=== PATIENT | female | born 1975 | race Caucasian/White ===

== ENCOUNTER 2021-05-10 05:17 | Observation (INO) | payer BC ==
[~2021-05-10] VITALS: Ht 170.2 cm; Wt 114.0 kg
--- NOTE | 2021-05-10 08:50 | RAD ---
XR CHEST 1V INDICATION: CODE STROKE COMPARISON STUDY: None. FINDINGS: Lungs: Normal lung volume. No pulmonary mass or consolidation. The tracheobronchial tree and hilar st ructures are normal. Pleura: No pleural effusion or pneumothorax. Heart and Mediastinum: The cardiomediastinal silhouette is normal. The great vessels of the thorax ar e normal. Bones and Soft Tissues: The bones and soft tissues are within normal limits. IMPRESSION: No acute cardiopulmonary process. Electronically signed by: Erick Lopez MD (05/10/2021 8:48 AM) [id number]
--- NOTE | 2021-05-10 08:56 | RAD ---
CT STROKE HEAD W/O History: Reason: LEFT SIDED WEAKNESS / Spl. Instructions: / History: Comparison: None. Technique: Noncontrast CT imaging was performed of the head. Images made available for review at 8:45 AM on 05/10/2021. Exposure: One or more of the following individualized dose reduction techniques were utilized for thi s examination: 1. Automated exposure control 2. Adjustment of the mA and/or kV according to patient size 3. Use of iterative reconstruction technique. Findings: No intracranial hemorrhage. No mass effect. No hydrocephalus. Extra-axial spaces are unremarkable. Imaged orbits are unremarkable. Imaged paranasal sinuses and mastoid air cells are clear. No acute ca lvarial fracture. Impression: 1. No acute intracranial abnormality. FOR INTERNAL CODING PURPOSES Critical result: Findings discussed with ER physician at 05/10/2021 8:50 AM. RESULT CODE: (C) Electronically signed by: Maged Paulino DO (05/10/2021 8:53 AM) [id number]
[2021-05-10 10:00] VITALS: BP 160/90
[2021-05-10 10:10] LABS: PROTHROMBIN TIME PATIENT 12.1 SEC (11.7-14.0)
[2021-05-10 10:11] LABS: BASO # 0.1 x10^3/uL (0.0-0.2); BASO % 1 % (0-3); EOS # 0.2 x10^3/uL (0.0-0.7); EOS % 2 % (0-3); HEMATOCRIT 36.7 % (36.0-47.0); HEMOGLOBIN 12.1 g/dL (12.0-15.5); LYMPH # 2.4 x10^3/uL (1.0-4.8); LYMPH % 37 % (24-48); MEAN CORPUSCULAR HEMOGLOBIN 27 pg (25-35); MEAN CORPUSCULAR HGB CONC 33 g/dL (31-37); MEAN CORPUSCULAR VOLUME 82 fL (79-100); MONO # 0.7 x10^3/uL (0.0-1.1); MONO % 11 % (0-9); NEUT # 3.2 x10^3/uL (1.8-7.7); NEUT % 49 % (31-73); PLATELET COUNT 272 x10^3/uL (140-400); RED BLOOD COUNT 4.46 x10^6/uL (3.50-5.40); RED CELL DISTRIBUTION WIDTH 16.6 % (11.5-14.5); WHITE BLOOD COUNT 6.6 x10^3/uL (4.0-11.0)
[2021-05-10] MEDS ORDERED: ONDANSETRON PF 4 MG/2 ML VIAL. IVP PRN (10:15)
[2021-05-10] MEDS ORDERED: ACETAMINOPHEN 325 MG TABLET. PO PRN (10:15)
[2021-05-10] MEDS ORDERED: hydrALAZINE 20 MG/ML VIAL. IVP PRN (10:15)
[2021-05-10 10:16] LABS: PREG TEST PT QUAL NEGATIVE (NEG)
[2021-05-10 10:23] LABS: ALBUMIN 3.1 g/dL (3.4-5.0); ALBUMIN/GLOBULIN RATIO 0.7 (1.0-1.7); CALCIUM 8.1 mg/dL (8.5-10.1); CREATININE 0.8 mg/dL (0.6-1.0); GFR 77.9; TOTAL BILIRUBIN 0.4 mg/dL (0.2-1.0); TOTAL PROTEIN 7.4 g/dL (6.4-8.2)
--- NOTE | 2021-05-10 10:25 | PHYS DOC ---
Adult General Chief Complaint Chief Complaint: HEADACHE HPI HPI Patient is a 45 year old female who presented to ER as stroke activation This note written for completion purposes in EMR. Patient not seen by Dr. Lang Allergies Allergies Allergies Coded Allergies Type Severity Reaction Last Updated Verified No Known Drug Allergies 10/28/13 No Current Patient Data Lab Values Laboratory Tests Test 05/10/21 05:00 05/10/21 05:30 Serum Test, Qualitative Negative (NEG) White Blood Count 6.6 x10^3/uL (4.0-11.0) Red Blood Count 4.46 x10^6/uL (3.50-5.40) Hemoglobin 12.1 g/dL (12.0-15.5) Hematocrit 36.7 % (36.0-47.0) Mean Corpuscular Volume 82 fL (79-100) Mean Corpuscular Hemoglobin 27 pg (25-35) Mean Corpuscular Hemoglobin Concent 33 g/dL (31-37) Red Cell Distribution Width 16.6 % (11.5-14.5) H Platelet Count 272 x10^3/uL (140-400) Neutrophils (%) (Auto) 49 % (31-73) Lymphocytes (%) (Auto) 37 % (24-48) Monocytes (%) (Auto) 11 % (0-9) H Eosinophils (%) (Auto) 2 % (0-3) Basophils (%) (Auto) 1 % (0-3) Neutrophils # (Auto) 3.2 x10^3/uL (1.8-7.7) Lymphocytes # (Auto) 2.4 x10^3/uL (1.0-4.8) Monocytes # (Auto) 0.7 x10^3/uL (0.0-1.1) Eosinophils # (Auto) 0.2 x10^3/uL (0.0-0.7) Basophils # (Auto) 0.1 x10^3/uL (0.0-0.2) Prothrombin Time 12.1 SEC (11.7-14.0) Prothrombin Time INR 0.9 (0.8-1.1) Sodium Level 140 mmol/L (136-145) Potassium Level 3.9 mmol/L (3.5-5.1) Chloride Level 102 mmol/L (98-107) Carbon Dioxide Level 29 mmol/L (21-32) Anion Gap 9 (6-14) Blood Urea Nitrogen 7 mg/dL (7-20) Creatinine 0.8 mg/dL (0.6-1.0) Estimated GFR (Cockcroft-Gault) 77.9 BUN/Creatinine Ratio 9 (6-20) Glucose Level 113 mg/dL (70-99) H Calcium Level 8.1 mg/dL (8.5-10.1) L Total Bilirubin 0.4 mg/dL (0.2-1.0) Aspartate Amino Transferase (AST) 62 U/L (15-37) H Alanine Aminotransferase (ALT) 64 U/L (14-59) H Alkaline Phosphatase 137 U/L (46-116) H Total Protein 7.4 g/dL (6.4-8.2) Albumin 3.1 g/dL (3.4-5.0) L Albumin/Globulin Ratio 0.7 (1.0-1.7) L Laboratory Tests 05/10/21 05:30 Laboratory Tests 05/10/21 05:30 EKG EKG [] Radiology/Procedures Radiology/Procedures [] Course & Med Decision Making Course & Med Decision Making Pertinent Labs and Imaging studies reviewed. (See chart for details) NOTE ENTERED IN ERROR. PATIENT NOT SEEN BY DR RUSS Ellis Disclaimer Rhonda Disclaimer This electronic medical record was generated, in whole or in part, using a voice recognition dictation system. Departure Departure Referrals: ESTELLA ANTONY MD (PCP) JOSELINE LANG DO May 10, 2021 10:25
[2021-05-10 10:26] LABS: POTASSIUM 3.9 mmol/L (3.5-5.1)
--- NOTE | 2021-05-10 11:12 | PDOC1 ---
History and Physical Date of Admission Date of Admission DATE: 05/10/21 TIME: 10:19 Identification/Chief Complaint Chief Complaint Left arm numbness and weakness Source Source: Patient History of Present Illness History of Present Illness Ms Wilder is a 45-year-old right-handed female with past medical history of right ocular migraines and morbid obesity status post gastric sleeve in 2019 who presents to the ED in the morning on 05/10/2021 around 0600 complaining that she woke at 0300 to feed her [id number] and noted left forearm and hand numbness and weakness unable to use her hand. This persisted for over an hour and at 0400 she took an 81 mg aspirin. At that time she also had a headache which minimally improved with the aspirin she took her blood pressure at home which was 189/130. After laying down she took a repeat blood pressure which was 169/106. As her hand weakness and numbness persisted she came to the ED for further care. She had no visual complaints no weakness in any of her limbs no difficulty with gait. Does have family history of a CVA in her mother at age 62 and CAD in her mother. She does not smoke or use smokeless tobacco and does drink more than 14 alcoholic drinks a week. She does not use illicit drugs. For her migraine she occasionally takes NSAIDs and has less than 3/month. She has not seen a primary care physician in over 2 years and has seen a neurologist for longer than that. Review of systems she notes that she has recently had urinary frequency and had foul-smelling urine. She also notes that she is fully vaccinated against COVID- 19 with Pfizer vaccine and delayed getting her booster as she had COVID-19 16 days ago and has fully recovered her symptoms included a mild cough and rhinitis. Labs WBC 6.6, Hb 12.1, platelets 272, INR 0.9, urine negative, high- sensitivity troponin 6, NA 140, K3.9, BUN 7, CR 0.8, glucose 113, calcium 8.1, bilirubin 0.4, AST 62, ALT 64, alkaline phosphatase 137, albumin 3.1, ethyl alcohol level less than 10. Chest radiograph no acute abnormalities Noncontrast CT head with no acute intracranial abnormalities Admitted for further care Past Medical History CENTRAL NERVOUS SYSTEM: Migraine Past Surgical History Past Surgical History Gastric sleeve 2019 at [facility] Past Surgical History: Tubal Ligation (and 2014 reversal) Family History Family History: Cancer (Bladder and father), Coronary Artery Disease (Mother age 50), Diabetes (Mother), Heart Disease, High Cholestrol, Hypertension, Kidney Disease (ESRD in mother), Obesity Social History Smoke: No ALCOHOL: heavy Drugs: None Current Medications Current Medications Current Medications Acetaminophen (Tylenol) 650 mg PRN Q6HRS PRN PO MILD PAIN / TEMP > 100.3'F; Start 05/10/21 at 10:15 Ondansetron HCl (Zofran) 4 mg PRN Q4HRS PRN IVP NAUSEA/VOMITING; Start 05/10/21 at 10:15 Hydralazine HCl (Apresoline Inj) 10 mg PRN Q4HRS PRN IVP ELEVATED BP, SEE COMMENTS; Start 05/10/21 at 10:15 Allergies Allergies: Coded Allergies: No Known Drug Allergies (Unverified , 10/28/13) ROS General: YES: Fatigue, Malaise; No: Chills, Night Sweats, Appetite, Other PSYCHOLOGICAL ROS: YES: Anxiety; No: Behavioral Disorder, Concentration difficultie, Decreased libido, Depression, Disorientation, Hallucinations, Hostility, Irritablity, Memory difficulties, Mood Swings, Obsessive thoughts, Physical abuse, Sexual abuse, S leep disturbances, Suicidal ideation, Other Eyes: No Blurry vision, No Decreased vision, No Double vision, No Dry eyes, No Excessive tearing, No Eye Pain, No Itchy Eyes, No Loss of vision, No Photophobia, No Scotomata, No Uses contacts, No Uses glasses, No Other HEENT: YES: Heacaches; No: Visual Changes, Hearing change, Nasal congestion, Nasal discharge, Oral lesions, Sinus pain, Sore Throat, Epistaxis, Sneezing, Snoring, Tinnitus, Vertigo, Vocal changes, Other ALLERGY AND IMMUNOLOGY: No: Hives, Insect Bite Sensitivity, Itchy/Watery Eyes, Nasal Congestion, Post Nasal Drip, Seasonal Allergies, Other Hematological and Lymphatic: No: Bleeding Problems, Blood Clots, Blood Transfusions, Brusing, Night Sweats, Pallor, Swollen Lymph Nodes, Other ENDOCRINE: No: Breast Changes, Galactorrhea, Hair Pattern Changes, Hot Flashes, Malaise/lethargy, Mood Swings, Palpitations, Polydipsia/polyuria, Skin Changes, Temperature Intolerance, Unexpected Weight Changes, Other Breast: No New/Changing Breast Lumps, No Nipple changes, No Nipple discharge, No Other Respiratory: No: Cough, Hemoptysis, Orthopnea, Pleuritic Pain, Shortness of breath, SOB with excertion, Sputum Changes, Stridor, Tachypnea, Wheezing, Other Cardiovascular: No Chest Pain, No Palpitations, No Orthopnea, No Paroxysmal Noc. Dyspnea, No Edema, No Lt Headedness, No Other Gastrointestinal: No Nausea, No Vomiting, No Abdominal Pain, No Diarrhea, No Constipation, No Melena, No Hematochezia, No Other Genitourinary: YES Frequency; No Dysuria, No Incontinence, No Hematuria, No Retention, No Discharge, No Urgency, No Pain, No Flank Pain, No Other, No , No , No , No , No , No , No Musculoskeletal: Yes Muscular Weakness; No Gait Disturbance, No Joint Pain, No Joint Stiffness, No Joint Swelling, No Muscle Pain, No Pain In:, No Swelling In:, No Other Neurological: Yes Numbness/Tingling; No Behavorial Changes, No Bowel/Bladder ControlChng, No Confusion, No Dizziness, No Gait Disturbance, No Headaches, No Impaired Coord/balance, No Memory Loss, No Seizures, No Speech Problems, No Tremors, No Visual Changes, No Weakness, No Other Skin: No Dry Skin, No Eczema, No Hair Changes, No Lumps, No Mole Changes, No Mottling, No Nail Changes, No Pruritus, No Rash, No Skin Lesion Changes, No Other, No Acne Labs Labs Laboratory Tests Test 05/10/21 05:00 05/10/21 05:30 Serum Test, Qualitative Negative (NEG) White Blood Count 6.6 x10^3/uL (4.0-11.0) Red Blood Count 4.46 x10^6/uL (3.50-5.40) Hemoglobin 12.1 g/dL (12.0-15.5) Hematocrit 36.7 % (36.0-47.0) Mean Corpuscular Volume 82 fL (79-100) Mean Corpuscular Hemoglobin 27 pg (25-35) Mean Corpuscular Hemoglobin Concent 33 g/dL (31-37) Red Cell Distribution Width 16.6 % (11.5-14.5) Platelet Count 272 x10^3/uL (140-400) Neutrophils (%) (Auto) 49 % (31-73) Lymphocytes (%) (Auto) 37 % (24-48) Monocytes (%) (Auto) 11 % (0-9) Eosinophils (%) (Auto) 2 % (0-3) Basophils (%) (Auto) 1 % (0-3) Neutrophils # (Auto) 3.2 x10^3/uL (1.8-7.7) Lymphocytes # (Auto) 2.4 x10^3/uL (1.0-4.8) Monocytes # (Auto) 0.7 x10^3/uL (0.0-1.1) Eosinophils # (Auto) 0.2 x10^3/uL (0.0-0.7) Basophils # (Auto) 0.1 x10^3/uL (0.0-0.2) Prothrombin Time 12.1 SEC (11.7-14.0) Prothromb Time International Ratio 0.9 (0.8-1.1) Laboratory Tests Test 05/10/21 05:00 05/10/21 05:30 Serum Test, Qualitative Negative (NEG) White Blood Count 6.6 x10^3/uL (4.0-11.0) Red Blood Count 4.46 x10^6/uL (3.50-5.40) Hemoglobin 12.1 g/dL (12.0-15.5) Hematocrit 36.7 % (36.0-47.0) Mean Corpuscular Volume 82 fL (79-100) Mean Corpuscular Hemoglobin 27 pg (25-35) Mean Corpuscular Hemoglobin Concent 33 g/dL (31-37) Red Cell Distribution Width 16.6 % (11.5-14.5) Platelet Count 272 x10^3/uL (140-400) Neutrophils (%) (Auto) 49 % (31-73) Lymphocytes (%) (Auto) 37 % (24-48) Monocytes (%) (Auto) 11 % (0-9) Eosinophils (%) (Auto) 2 % (0-3) Basophils (%) (Auto) 1 % (0-3) Neutrophils # (Auto) 3.2 x10^3/uL (1.8-7.7) Lymphocytes # (Auto) 2.4 x10^3/uL (1.0-4.8) Monocytes # (Auto) 0.7 x10^3/uL (0.0-1.1) Eosinophils # (Auto) 0.2 x10^3/uL (0.0-0.7) Basophils # (Auto) 0.1 x10^3/uL (0.0-0.2) Prothrombin Time 12.1 SEC (11.7-14.0) Prothromb Time International Ratio 0.9 (0.8-1.1) Images Images CT head w/o contrast: No intracranial hemorrhage. No mass effect. No hydrocephalus. Extra-axial spaces are unremarkable. Imaged orbits are unremarkable. Imaged paranasal sinuses and mastoid air cells are clear. No acute calvarial fracture. Impression: 1. No acute intracranial abnormality. VTE Prophylaxis Ordered VTE Prophylaxis Devices: No VTE Pharmacological Prophylaxi: No Assessment/Plan Assessment/Plan A/P: Left arm weakness -given resolution of symptoms and normal peripheral pulses this is likely a nerve impingement ulnar possible median nerve, sounds similar to the "Thursday night palsy". Based on her alcohol intake history and sleep deprivation with a young child it is also possible. No history of cervical spinal problems. She has never had these symptoms before. Already taken aspirin. Symptoms have resolved. CT head no concerning findings. I have notified neurology code stroke was called overnight for labor. Given she awoke with the symptoms her last known normal was 2200 on 05/09/2021. Ocular migraines -usually right-sided less than 3 a month. No indication for prophylaxis Morbid obesity -status post gastric sleeve in 2019 she is happy with her weight loss thus far. Transaminitis -possibly due to nonalcoholic fatty liver disease in combination with some alcoholic liver disease versus recovering transaminases from recent COVID infection. Should have outpatient follow-up for this to ensure they resolved. No history of hepatitis exposure. No abdominal complaints. Hyperglycemia -with family history we will check A1c to rule out diabetes and check TSH. Heavy alcohol use -counseled on cutting back. She does not wish for additional resources at this time and will cut back on her own. FEN - regular diet PPX - SCDs FULL CODE Dispo - observation Justifications for Admission Other Justification MARTIN ORTIZ MD May 10, 2021 11:12
[2021-05-10 11:24] LABS: BILIRUBIN,URINE NEGATIVE (NEG); CLARITY,URINE CLEAR; COLOR,URINE YELLOW; NITRITE,URINE NEGATIVE (NEG); PH,URINE 7.5 (<5.0-8.0); PROTEIN,URINE NEGATIVE (NEG-TRACE)
[2021-05-10 11:49] LABS: BACTERIA,URINE 0 /HPF (0-FEW); RBC,URINE 0 /HPF (0-2); WBC,URINE 0 /HPF (0-4)
--- NOTE | 2021-05-10 12:07 | PDOC2 ---
NEUROLOGY CONSULT Date of Service DOS: DATE: 05/10/21 TIME: 12:01 Reason for Consult Reason for Consult: Stroke symptoms Referring Physician Referring Physician: Dr. Elizabeth Source Source: Caregiver (, brother), Chart review, Patient History of Present Illness History of Present Illness The patient is a 45-year-old right-handed female who yesterday at 1500 noticed the onset of left arm numbness. She gets migraine headaches about every 2 months usually with right arm symptoms and ocular symptoms. She does not take anything for them. She started having migraines in her teens and did try rizatriptan once which caused some jaw pain and made her feel funny. She went ahead and took an aspirin, waited for the symptoms to go away, but they were still present after an hour so she came to the emergency department. She did notice that her blood pressure was high. She feels fine now except that her left arm still feels a little bit funny. There is no history of stroke, seizure, or head injury. 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, occasional alcohol, no tobacco or street drugs, 4 children Current Medications Current Medications Current Medications Acetaminophen (Tylenol) 650 mg PRN Q6HRS PRN PO MILD PAIN / TEMP > 100.3'F; Start 05/10/21 at 10:15 Ondansetron HCl (Zofran) 4 mg PRN Q4HRS PRN IVP NAUSEA/VOMITING; Start 05/10/21 at 10:15 Hydralazine HCl (Apresoline Inj) 10 mg PRN Q4HRS PRN IVP ELEVATED BP, SEE COMMENTS; Start 05/10/21 at 10:15 Active Scripts Active Reported No Known Medications Prior To Admisstion (Info) Each 1 Each MC 1X Allergies Allergies: Coded Allergies: No Known Drug Allergies (Unverified , 10/28/13) ROS Review of System Negative for fever, chills, weight loss, shortness of breath, chest pain, indigestion, hematochezia, melena, and dysuria. Full 14-point review of systems is negative. Physical Exam Physical Examination General: Well-developed, well-nourished, white female, in no acute distress HEENT: Normocephalic andatraumatic. Temporal arteriespulsatile and nontender.Fundoscopic exam unremarkable Neck: Supple without bruit, no meningismus Musculoskeletal: Stability:see neurologic. Gait exam:see neurologic. Tone:see neurologic.Strength:see neurologic. Neurological: Mental Status:intact, orientation, memory, attention span/concentration, language, fund of knowledge normal. Cranial Nerves:Pupils equal and reactive to light, extraocular movements areintact, visual maxwell are full to confrontation. Facial sensation is normal. There is no facial asymmetry. Vestibulo-ocular reflex is intact. Palate elevates and tongue protrudes in midline. All other cranial related problems are negative except as mentioned before.Reflexes:2+ and symmetric with flexor plantar responses. Motor:5/5 strength with normal tone and bulk. Coordination:Finger-nose finger and [id number] testing are normal. Rapid alternating movements and fine finger movements are intact. Gait:Normal, including tandem. Sensory:Normal pinprick, vibration, light touch, proprioception. Vitals VITALS Vital Signs Date Time Temp Pulse Resp B/P (MAP) Pulse Ox O2 Delivery O2 Flow Rate FiO2 05/10/21 10:00 97.7 88 18 160/90 (113) 98 Room Air 97.7 Labs Labs Laboratory Tests Test 05/10/21 05:00 05/10/21 05:30 05/10/21 11:05 Serum Test, Qualitative Negative (NEG) White Blood Count 6.6 x10^3/uL (4.0-11.0) Red Blood Count 4.46 x10^6/uL (3.50-5.40) Hemoglobin 12.1 g/dL (12.0-15.5) Hematocrit 36.7 % (36.0-47.0) Mean Corpuscular Volume 82 fL (79-100) Mean Corpuscular Hemoglobin 27 pg (25-35) Mean Corpuscular Hemoglobin Concent 33 g/dL (31-37) Red Cell Distribution Width 16.6 % (11.5-14.5) Platelet Count 272 x10^3/uL (140-400) Neutrophils (%) (Auto) 49 % (31-73) Lymphocytes (%) (Auto) 37 % (24-48) Monocytes (%) (Auto) 11 % (0-9) Eosinophils (%) (Auto) 2 % (0-3) Basophils (%) (Auto) 1 % (0-3) Neutrophils # (Auto) 3.2 x10^3/uL (1.8-7.7) Lymphocytes # (Auto) 2.4 x10^3/uL (1.0-4.8) Monocytes # (Auto) 0.7 x10^3/uL (0.0-1.1) Eosinophils # (Auto) 0.2 x10^3/uL (0.0-0.7) Basophils # (Auto) 0.1 x10^3/uL (0.0-0.2) Prothrombin Time 12.1 SEC (11.7-14.0) Prothromb Time International Ratio 0.9 (0.8-1.1) Sodium Level 140 mmol/L (136-145) Potassium Level 3.9 mmol/L (3.5-5.1) Chloride Level 102 mmol/L (98-107) Carbon Dioxide Level 29 mmol/L (21-32) Anion Gap 9 (6-14) Blood Urea Nitrogen 7 mg/dL (7-20) Creatinine 0.8 mg/dL (0.6-1.0) Estimated GFR (Cockcroft-Gault) 77.9 BUN/Creatinine Ratio 9 (6-20) Glucose Level 113 mg/dL (70-99) Calcium Level 8.1 mg/dL (8.5-10.1) Total Bilirubin 0.4 mg/dL (0.2-1.0) Aspartate Amino Transf (AST/SGOT) 62 U/L (15-37) Alanine Aminotransferase (ALT/SGPT) 64 U/L (14-59) Alkaline Phosphatase 137 U/L (46-116) Troponin I High Sensitivity 6 ng/L (4-50) Total Protein 7.4 g/dL (6.4-8.2) Albumin 3.1 g/dL (3.4-5.0) Albumin/Globulin Ratio 0.7 (1.0-1.7) Ethyl Alcohol Level < 10 mg/dL (0-10) Urine Color Yellow Urine Clarity Clear Urine pH 7.5 (<5.0-8.0) Urine Specific Rogers 1.020 (1.000-1.030) Urine Protein Negative mg/dL (NEG-TRACE) Urine Glucose (UA) Negative mg/dL (NEG) Urine Ketones (Stick) Negative mg/dL (NEG) Urine Blood Negative (NEG) Urine Nitrite Negative (NEG) Urine Bilirubin Negative (NEG) Urine Urobilinogen Dipstick 1.0 mg/dL (0.2 mg/dL) Urine Leukocyte Esterase Negative (NEG) Urine RBC 0 /HPF (0-2) Urine WBC 0 /HPF (0-4) Urine Squamous Epithelial Cells Few /LPF Urine Bacteria 0 /HPF (0-FEW) Laboratory Tests Test 05/10/21 05:00 05/10/21 05:30 05/10/21 11:05 Serum Test, Qualitative Negative (NEG) White Blood Count 6.6 x10^3/uL (4.0-11.0) Red Blood Count 4.46 x10^6/uL (3.50-5.40) Hemoglobin 12.1 g/dL (12.0-15.5) Hematocrit 36.7 % (36.0-47.0) Mean Corpuscular Volume 82 fL (79-100) Mean Corpuscular Hemoglobin 27 pg (25-35) Mean Corpuscular Hemoglobin Concent 33 g/dL (31-37) Red Cell Distribution Width 16.6 % (11.5-14.5) Platelet Count 272 x10^3/uL (140-400) Neutrophils (%) (Auto) 49 % (31-73) Lymphocytes (%) (Auto) 37 % (24-48) Monocytes (%) (Auto) 11 % (0-9) Eosinophils (%) (Auto) 2 % (0-3) Basophils (%) (Auto) 1 % (0-3) Neutrophils # (Auto) 3.2 x10^3/uL (1.8-7.7) Lymphocytes # (Auto) 2.4 x10^3/uL (1.0-4.8) Monocytes # (Auto) 0.7 x10^3/uL (0.0-1.1) Eosinophils # (Auto) 0.2 x10^3/uL (0.0-0.7) Basophils # (Auto) 0.1 x10^3/uL (0.0-0.2) Prothrombin Time 12.1 SEC (11.7-14.0) Prothromb Time International Ratio 0.9 (0.8-1.1) Sodium Level 140 mmol/L (136-145) Potassium Level 3.9 mmol/L (3.5-5.1) Chloride Level 102 mmol/L (98-107) Carbon Dioxide Level 29 mmol/L (21-32) Anion Gap 9 (6-14) Blood Urea Nitrogen 7 mg/dL (7-20) Creatinine 0.8 mg/dL (0.6-1.0) Estimated GFR (Cockcroft-Gault) 77.9 BUN/Creatinine Ratio 9 (6-20) Glucose Level 113 mg/dL (70-99) Calcium Level 8.1 mg/dL (8.5-10.1) Total Bilirubin 0.4 mg/dL (0.2-1.0) Aspartate Amino Transf (AST/SGOT) 62 U/L (15-37) Alanine Aminotransferase (ALT/SGPT) 64 U/L (14-59) Alkaline Phosphatase 137 U/L (46-116) Troponin I High Sensitivity 6 ng/L (4-50) Total Protein 7.4 g/dL (6.4-8.2) Albumin 3.1 g/dL (3.4-5.0) Albumin/Globulin Ratio 0.7 (1.0-1.7) Ethyl Alcohol Level < 10 mg/dL (0-10) Urine Color Yellow Urine Clarity Clear Urine pH 7.5 (<5.0-8.0) Urine Specific Rogers 1.020 (1.000-1.030) Urine Protein Negative mg/dL (NEG-TRACE) Urine Glucose (UA) Negative mg/dL (NEG) Urine Ketones (Stick) Negative mg/dL (NEG) Urine Blood Negative (NEG) Urine Nitrite Negative (NEG) Urine Bilirubin Negative (NEG) Urine Urobilinogen Dipstick 1.0 mg/dL (0.2 mg/dL) Urine Leukocyte Esterase Negative (NEG) Urine RBC 0 /HPF (0-2) Urine WBC 0 /HPF (0-4) Urine Squamous Epithelial Cells Few /LPF Urine Bacteria 0 /HPF (0-FEW) Images Images CT STROKE HEAD W/O History: Reason: LEFT SIDED WEAKNESS / Spl. Instructions: / History: Comparison: None. Technique: Noncontrast CT imaging was performed of the head. Images made available for review at 8:45 AM on 05/10/2021. Exposure: One or more of the following individualized dose reduction techniques were utilized for this examination: 1. Automated exposure control 2. Adjustment of the mA and/or kV according to patient size 3. Use of iterative reconstruction technique. Findings: No intracranial hemorrhage. No mass effect. No hydrocephalus. Extra-axial spaces are unremarkable. Imaged orbits are unremarkable. Imaged paranasal sinuses and mastoid air cells are clear. No acute calvarial fracture. Impression: 1. No acute intracranial abnormality. Assessment/Plan Assessment/Plan Impression: Migraine associated neurological symptoms, doubt stroke or transient ischemic attack, blood pressure was high, though, which could have contributed. Recommendations: MRI of the brain, she has some claustrophobia, I have prescribed some Valium CT angiogram Echocardiogram Aspirin Sumatriptan as needed, risk discussed including cardiac. The reaction to rizatriptan sounds more like a serotonin effect rather than any type of anginal equivalent. She is not interested in a daily migraine prevention medication. If she changes her mind I would most likely use escitalopram. Further testing if MRI positive, otherwise okay for discharge Follow-up with me or my nurse practitioner in 6 weeks. Thank you for letting me help with the patient's care. LETICIA SANFORD MD May 10, 2021 12:07
--- NOTE | 2021-05-10 12:08 | NUR ---
SS following for discharge planning. SS reviewed pt chart and discussed with pt RN. Pt is from home with spouse and is currently on room air. PAT team referral made for assessment and recommendations for ETOH. SS will continue to follow for discharge planning. Addendum: 05/10/21 at 1334 by TONY BAPTISTE SS Marli Atkinson from [facility] team met with pt. Resources provided. Pt cleared by [facility] team. Pt's RN notified.
[2021-05-10] MEDS ORDERED: diazePAM 5 MG TABLET PO PRN (13:00)
[2021-05-10] MEDS ORDERED: ASPIRIN ENTERIC COATED 81 MG TABLET.DR. PO SCH (13:00)
--- NOTE | 2021-05-10 14:06 | CARD ---
MR#: [id number] Date of Study: 05/10/2021 Ordering Physician: LETICIA SANFORD, Referring Physician: LETICIA SANFORD, Tech: Karin Holley [facility] APPROVED REPORT EXAM: Two-dimensional and M-mode echocardiogram with Doppler and color Doppler. Other Information Quality : GoodHR: 78bpm Rhythm : NSR INDICATION CVA/TIA RISK FACTORS Hypertension Obesity 2D DIMENSIONS RVDd3.0 (2.9-3.5cm)Left Atrium(2D)3.5 (1.6-4.0cm) IVSd1.1 (0.7-1.1cm)Aortic Root(2D)2.9 (2.0-3.7cm) LVDd4.3 (3.9-5.9cm)LVOT Diameter2.3 (1.8-2.4cm) PWd1.1 (0.7-1.1cm)LVDs2.7 (2.5-4.0cm) FS (%) 35.8 %SV53.5 ml Aortic Valve AoV Peak Devon.160.2cm/sAoV VTI30.3cm AO Peak GR.10.3mmHgLVOT Peak Devon.94.3cm/s AO Mean GR.5mmHgAVA (VMAX)2.49cm2 Pulmonary Valve PV Peak Niiiiqct721.0cm/s LEFT VENTRICLE The left ventricle is normal size. There is mild concentric left ventricular hypertrophy. The left ve ntricular systolic function is normal and the ejection fraction is within normal range. LV ejection f raction is 60 to 65%. There is normal LV segmental wall motion. The left ventricular diastolic functi on and filling is normal for age. RIGHT VENTRICLE The right ventricle is normal size. There is normal right ventricular wall thickness. The right ventr icular systolic function is normal. ATRIA The left atrium size is normal. The right atrium size is normal. The interatrial septum is intact wit h no evidence for an atrial septal defect or patent foramen ovale as noted on 2-D or Doppler imaging. Normal bubble study. AORTIC VALVE The aortic valve is normal in structure and function. Doppler and Color Flow revealed trace to mild a ortic regurgitation. There is no significant aortic valvular stenosis. MITRAL VALVE The mitral valve is normal in structure and function. There is no evidence of mitral valve prolapse. There is no mitral valve stenosis. Doppler and Color-flow revealed trace mitral regurgitation. TRICUSPID VALVE The tricuspid valve is normal in structure and function. Doppler and Color Flow revealed no tricuspid valve regurgitation noted. There is no tricuspid valve stenosis. PULMONIC VALVE The pulmonary valve is normal in structure and function. Doppler and Color Flow revealed trace pulmon ic valvular regurgitation. GREAT VESSELS The aortic root is normal in size. The ascending aorta is normal in size. The IVC is normal in size a nd collapses >50% with inspiration. PERICARDIAL EFFUSION There is no evidence of significant pericardial effusion. Critical Notification Critical Value: No <Conclusion> The left ventricle is normal size. The left ventricular systolic function is normal and the ejection fraction is within normal range. LV ejection fraction is 60 to 65%. There is mild concentric left ventricular hypertrophy. The interatrial septum is intact with no evidence for an atrial septal defect or patent foramen ovale as noted on 2-D or Doppler imaging. Normal bubble study. Doppler and Color Flow revealed trace to mild aortic regurgitation. There is no significant aortic valvular stenosis. Doppler and Color-flow revealed trace mitral regurgitation. Doppler and Color Flow revealed no tricuspid valve regurgitation noted. Signed by : Adan Elliott MD Electronically Approved : 05/10/2021 14:05:36
[2021-05-10] MEDS ORDERED: IOHEXOL 350 MG/ML 100 ML VIAL. IV ONE (14:15)
[2021-05-10] MEDS ORDERED: CONTRAST GIVEN. MC PRN (14:15)
--- NOTE | 2021-05-10 15:09 | RAD ---
MRI BRAIN WO History:Reason: TIA, left numbness / Spl. Instructions: / History: Technique: Multiplanar, multi sequential MR imaging was performed of the brain without contrast. Comparison: Head CT May 10, 2021 Findings: No acute infarct. No intracranial hemorrhage. No mass effect. No hydrocephalus. Extra-axial spaces a re unremarkable. Imaged orbits are unremarkable. Imaged paranasal sinuses and mastoid air cells are clear. Impression: 1. No acute intracranial abnormality. Electronically signed by: Maged Paulino DO (05/10/2021 3:07 PM) [id number]
--- NOTE | 2021-05-10 16:02 | RAD ---
CTA HEAD AND NECK W/WO CONTRAST History:Reason: TIA, left numbness / Spl. Instructions: omni 350 75ml / History: Technique: After bolus of intravenous contrast, volumetric CT data acquisition was acquired of the he ad and neck. Multiplanar reconstruction images to include MIP and 3-D reconstruction images are submi tted. Exposure: One or more of the following individualized dose reduction techniques were utilized for thi s examination: 1. Automated exposure control 2. Adjustment of the mA and/or kV according to patient size 3. Use of iterative reconstruction technique. Comparison: CT May 10, 2021 Any determination of stenosis is based on NASCET criteria. Head CTA: ICA: No stenosis, occlusion or aneurysm. MCA: No stenosis, occlusion or aneurysm. JOSE: No stenosis, occlusion or aneurysm. APARTMENT MAINTENANCE MANAGER: No stenosis, occlusion or aneurysm. Basilar artery: No stenosis, occlusion or aneurysm. Distal vertebral arteries: No stenosis, occlusion or aneurysm. Patent superior sagittal, straight, transverse and sigmoid venous sinuses. CT angiogram neck: Aortic arch: Conventional arch anatomy. Common carotid arteries: No stenosis, occlusion or dissection. Internal carotid arteries: No stenosis, occlusion or dissection. External carotid arteries: Patent Vertebral arteries: No stenosis, occlusion or dissection. Imaged lung apices are unremarkable. Soft tissues appear normal. Bones: Mild cervical spondylosis. Impression: 1. No arterial stenosis or occlusion within the head or neck. Electronically signed by: Maged Paulino DO (05/10/2021 4:00 PM) [id number]
[2021-05-10] MEDS ORDERED: ASPI-886 PO (16:31)
--- NOTE | 2021-05-10 16:47 | PDOC3 ---
Discharge Summary Visit Information Date of Admission: May 10, 2021 Date of Discharge: May 10, 2021 Admitting Diagnosis: Left arm numbess Final Diagnosis Problems Medical Problems: (1) Left arm numbness Status: Acute Brief Hospital Course Allergies Allergies Coded Allergies Type Severity Reaction Last Updated Verified No Known Drug Allergies 10/28/13 No Vital Signs Vital Signs Date Time Temp Pulse Resp B/P (MAP) Pulse Ox O2 Delivery O2 Flow Rate FiO2 05/10/21 10:45 Room Air 05/10/21 10:00 97.7 88 18 160/90 (113) 98 97.7 Lab Results Laboratory Tests Test 05/10/21 05:00 05/10/21 05:30 05/10/21 11:05 Serum Test, Qualitative Negative (NEG) White Blood Count 6.6 x10^3/uL (4.0-11.0) Red Blood Count 4.46 x10^6/uL (3.50-5.40) Hemoglobin 12.1 g/dL (12.0-15.5) Hematocrit 36.7 % (36.0-47.0) Mean Corpuscular Volume 82 fL (79-100) Mean Corpuscular Hemoglobin 27 pg (25-35) Mean Corpuscular Hemoglobin Concent 33 g/dL (31-37) Red Cell Distribution Width 16.6 % (11.5-14.5) Platelet Count 272 x10^3/uL (140-400) Neutrophils (%) (Auto) 49 % (31-73) Lymphocytes (%) (Auto) 37 % (24-48) Monocytes (%) (Auto) 11 % (0-9) Eosinophils (%) (Auto) 2 % (0-3) Basophils (%) (Auto) 1 % (0-3) Neutrophils # (Auto) 3.2 x10^3/uL (1.8-7.7) Lymphocytes # (Auto) 2.4 x10^3/uL (1.0-4.8) Monocytes # (Auto) 0.7 x10^3/uL (0.0-1.1) Eosinophils # (Auto) 0.2 x10^3/uL (0.0-0.7) Basophils # (Auto) 0.1 x10^3/uL (0.0-0.2) Prothrombin Time 12.1 SEC (11.7-14.0) Prothromb Time International Ratio 0.9 (0.8-1.1) Sodium Level 140 mmol/L (136-145) Potassium Level 3.9 mmol/L (3.5-5.1) Chloride Level 102 mmol/L (98-107) Carbon Dioxide Level 29 mmol/L (21-32) Anion Gap 9 (6-14) Blood Urea Nitrogen 7 mg/dL (7-20) Creatinine 0.8 mg/dL (0.6-1.0) Estimated GFR (Cockcroft-Gault) 77.9 BUN/Creatinine Ratio 9 (6-20) Glucose Level 113 mg/dL (70-99) Calcium Level 8.1 mg/dL (8.5-10.1) Total Bilirubin 0.4 mg/dL (0.2-1.0) Aspartate Amino Transf (AST/SGOT) 62 U/L (15-37) Alanine Aminotransferase (ALT/SGPT) 64 U/L (14-59) Alkaline Phosphatase 137 U/L (46-116) Troponin I High Sensitivity 6 ng/L (4-50) Total Protein 7.4 g/dL (6.4-8.2) Albumin 3.1 g/dL (3.4-5.0) Albumin/Globulin Ratio 0.7 (1.0-1.7) Thyroid Stimulating Hormone (TSH) 1.810 uIU/mL (0.358-3.74) Ethyl Alcohol Level < 10 mg/dL (0-10) Urine Color Yellow Urine Clarity Clear Urine pH 7.5 (<5.0-8.0) Urine Specific [place] 1.020 (1.000-1.030) Urine Protein Negative mg/dL (NEG-TRACE) Urine Glucose (UA) Negative mg/dL (NEG) Urine Ketones (Stick) Negative mg/dL (NEG) Urine Blood Negative (NEG) Urine Nitrite Negative (NEG) Urine Bilirubin Negative (NEG) Urine Urobilinogen Dipstick 1.0 mg/dL (0.2 mg/dL) Urine Leukocyte Esterase Negative (NEG) Urine RBC 0 /HPF (0-2) Urine WBC 0 /HPF (0-4) Urine Squamous Epithelial Cells Few /LPF Urine Bacteria 0 /HPF (0-FEW) Laboratory Tests Test 05/10/21 05:00 05/10/21 05:30 05/10/21 11:05 Serum Test, Qualitative Negative (NEG) White Blood Count 6.6 x10^3/uL (4.0-11.0) Red Blood Count 4.46 x10^6/uL (3.50-5.40) Hemoglobin 12.1 g/dL (12.0-15.5) Hematocrit 36.7 % (36.0-47.0) Mean Corpuscular Volume 82 fL (79-100) Mean Corpuscular Hemoglobin 27 pg (25-35) Mean Corpuscular Hemoglobin Concent 33 g/dL (31-37) Red Cell Distribution Width 16.6 % (11.5-14.5) Platelet Count 272 x10^3/uL (140-400) Neutrophils (%) (Auto) 49 % (31-73) Lymphocytes (%) (Auto) 37 % (24-48) Monocytes (%) (Auto) 11 % (0-9) Eosinophils (%) (Auto) 2 % (0-3) Basophils (%) (Auto) 1 % (0-3) Neutrophils # (Auto) 3.2 x10^3/uL (1.8-7.7) Lymphocytes # (Auto) 2.4 x10^3/uL (1.0-4.8) Monocytes # (Auto) 0.7 x10^3/uL (0.0-1.1) Eosinophils # (Auto) 0.2 x10^3/uL (0.0-0.7) Basophils # (Auto) 0.1 x10^3/uL (0.0-0.2) Prothrombin Time 12.1 SEC (11.7-14.0) Prothromb Time International Ratio 0.9 (0.8-1.1) Sodium Level 140 mmol/L (136-145) Potassium Level 3.9 mmol/L (3.5-5.1) Chloride Level 102 mmol/L (98-107) Carbon Dioxide Level 29 mmol/L (21-32) Anion Gap 9 (6-14) Blood Urea Nitrogen 7 mg/dL (7-20) Creatinine 0.8 mg/dL (0.6-1.0) Estimated GFR (Cockcroft-Gault) 77.9 BUN/Creatinine Ratio 9 (6-20) Glucose Level 113 mg/dL (70-99) Calcium Level 8.1 mg/dL (8.5-10.1) Total Bilirubin 0.4 mg/dL (0.2-1.0) Aspartate Amino Transf (AST/SGOT) 62 U/L (15-37) Alanine Aminotransferase (ALT/SGPT) 64 U/L (14-59) Alkaline Phosphatase 137 U/L (46-116) Troponin I High Sensitivity 6 ng/L (4-50) Total Protein 7.4 g/dL (6.4-8.2) Albumin 3.1 g/dL (3.4-5.0) Albumin/Globulin Ratio 0.7 (1.0-1.7) Thyroid Stimulating Hormone (TSH) 1.810 uIU/mL (0.358-3.74) Ethyl Alcohol Level < 10 mg/dL (0-10) Urine Color Yellow Urine Clarity Clear Urine pH 7.5 (<5.0-8.0) Urine Specific [place] 1.020 (1.000-1.030) Urine Protein Negative mg/dL (NEG-TRACE) Urine Glucose (UA) Negative mg/dL (NEG) Urine Ketones (Stick) Negative mg/dL (NEG) Urine Blood Negative (NEG) Urine Nitrite Negative (NEG) Urine Bilirubin Negative (NEG) Urine Urobilinogen Dipstick 1.0 mg/dL (0.2 mg/dL) Urine Leukocyte Esterase Negative (NEG) Urine RBC 0 /HPF (0-2) Urine WBC 0 /HPF (0-4) Urine Squamous Epithelial Cells Few /LPF Urine Bacteria 0 /HPF (0-FEW) Brief Hospital Course Ms Wilder is a 45-year-old right-handed female with past medical history of right ocular migraines and morbid obesity status post gastric sleeve in 2019 who presents to the ED in the morning on 05/10/2021 around 0600 complaining that she woke at 0300 to feed her [id number] and noted left forearm and hand numbness and weakness unable to use her hand. This persisted for over an hour and at 0400 she took an 81 mg aspirin. At that time she also had a headache which minimally improved with the aspirin she took her blood pressure at home which was 189/130. After laying down she took a repeat blood pressure which was 169/106. As her hand weakness and numbness persisted she came to the ED for further care. She had no visual complaints no weakness in any of her limbs no difficulty with gait. Does have family history of a CVA in her mother at age 62 and CAD in her mother. She does not smoke or use smokeless tobacco and does drink more than 14 alcoholic drinks a week. She does not use illicit drugs. For her migraine she occasionally takes NSAIDs and has less than 3/month. She has not seen a primary care physician in over 2 years and has seen a neurologist for longer than that. Review of systems she notes that she has recently had urinary frequency and had foul-smelling urine. She also notes that she is fully vaccinated against COVID- 19 with Pfizer vaccine and delayed getting her booster as she had COVID-19 16 days ago and has fully recovered her symptoms included a mild cough and rhinitis. Labs WBC 6.6, Hb 12.1, platelets 272, INR 0.9, urine negative, high- sensitivity troponin 6, NA 140, K3.9, BUN 7, CR 0.8, glucose 113, calcium 8.1, bilirubin 0.4, AST 62, ALT 64, alkaline phosphatase 137, albumin 3.1, ethyl alcohol level less than 10. Chest radiograph no acute abnormalities Noncontrast CT head with no acute intracranial abnormalities Admitted for further care Throughout the day her weakness and numbness improved weakness resolved numbness persists a little bit in her fingers. Repeat PE: Vital signs stable HEENT: Head normocephalic, atraumatic. NECK: Supple LUNGS: Clear to auscultation. HEART: RRR, S1, S2 present, pulses intact ABDOMEN: Soft, positive bowel sounds. EXTREMITIES: No cyanosis or edema. NEUROLOGIC: Normal speech, normal tone PSYCHIATRIC: Normal affect, normal mood. SKIN: No ulceration. Seen by neurology in consultation. Recommended as needed Imitrex patient is hesitant to take this. She underwent further testing to rule out cerebrovascular accident. CTA head neck with no occlusive disease. MRI brain performed which was normal Echocardiogram performed which is essentially normal: The left ventricle is normal size. The left ventricular systolic function is normal and the ejection fraction is within normal range. LV ejection fraction is 60 to 65%. There is mild concentric left ventricular hypertrophy. The interatrial septum is intact with no evidence for an atrial septal defect or patent foramen ovale as noted on 2-D or Doppler imaging. Normal bubble study. Doppler and Color Flow revealed trace to mild aortic regurgitation. There is no significant aortic valvular stenosis. Doppler and Color-flow revealed trace mitral regurgitation. Doppler and Color Flow revealed no tricuspid valve regurgitation noted. 135 minutes spent on same day admit discharge Discharge Information Condition at Discharge: Improved Follow Up: Weeks (1) Disposition/Orders: D/C to Home Scheduled Info (No Known Medications Prior To Admisstion) Each, 1 EACH 1X for ., (Reported) Entered as Reported by: TRI BAR on 05/10/211136 Last Action: New Order on 05/10/211136 by TRI BAR Justicifation of Admission Dx: Justifications for Admission: Justification of Admission Dx: Yes MARTIN ORTIZ MD May 10, 2021 16:47
[2021-05-10 16:49] VITALS: BP 160/87
--- NOTE | 2021-05-10 18:13 | NUR ---
Discharge Note: FARRAH FARLEY [address] Discharge instructions and discharge home medications reviewed with Patient and a copy given. All questions have been answered and understanding verbalized. The following instructions and handouts were given: stroke, stroke prevention, ASA IV's discontinued, no complications Patient discharged to home with self care. All belongings taken home with patient
[2021-05-11 01:12] LABS: HEMOGLOBIN A1C 5.7 % (4.8-5.6)
== END 2021-05-10 18:05 | disposition home or self-care (01) ==
LOC: ER 05:17 → 6 SOUTH 06:20
PROVIDERS: ADMIT Internal Medicine; ATTEND Internal Medicine
DX: M62.81 Muscle weakness (generalized) (principal); G43.B0 Ophthalmoplegic migraine, not intractable; E66.01 Morbid (severe) obesity due to excess calories; R74.01 Elevation of levels of liver transaminase levels; R73.9 Hyperglycemia, unspecified; F10.129 Alcohol abuse with intoxication, unspecified; G43.109 Migraine with aura, not intractable, without status migrainosus; I51.7 Cardiomegaly; Z79.899 Other long term (current) drug therapy; Z98.890 Other specified postprocedural states; Z72.820 Sleep deprivation; Z86.16 Personal history of COVID-19; Z98.84 Bariatric surgery status; Z98.51 Tubal ligation status; Z68.39 Body mass index [BMI] 39.0-39.9, adult
CPT/HCPCS: 36415; 70450; 70496; 70498; 70551; 71045; 80053; 81001; 82962; 83036; 84443; 84484; 84703; 85025; 85610; 93306; 96374; 99285; G0378; G0480; J2060; Q9967; G0379; C8929